=== PATIENT | female | born 1960 | race Caucasian/White ===

== ENCOUNTER → 2016-11-24 | Day surgery (SDC) | payer OTHER ==
[~2016-11-24] MED LIST: ATORVASTATIN CA10 MG PO; LOTENSIN HCT 201 TAB PO; PRAVACHOL; ULTRAM PO; VITAMIN D3400 UNI1 PO; VOLTAREN75 MG PO; ZESTORETIC 20-1 EAC1 PO; ZESTORETIC PO
--- NOTE | ~2016-11-24 | OR ---
Unit #: [id number] #: [id number] Patient: AIR SOSA [id number] [address] [address] [id number] MR#: [id number] NAME: ARI SOSA ROOM: Date of Procedure: 11/24/2016 Admission Date: 11/24/2016 Surgeon: Al Wiggins M.D. : 1960 Attending Physician: Al Wiggins M.D. Referring Physician: Al Wiggins M.D. Primary Care Physician: Marisela Matias M.D. OPERATIVE REPORT PROCEDURE PERFORMED Colonoscopy to ascending colon with snare polypectomy. INDICATIONS FOR PROCEDURE The patient with history of colon cancer, undergoing high-risk surveillance. MEDICATIONS Monitored anesthesia. POSTOPERATIVE FINDINGS 1. Two polyps, ascending colon, snared and sent for histopathology. 2. Cecum was identified from a distance; however, I could not get into the cecum itself. The patient has a very large ventral hernia, which makes it difficult to get through the transverse colon and back to the cecum. PLAN 1. Follow up on pathology report. 2. Repeat colonoscopy in 3 to 5 years. DESCRIPTION OF PROCEDURE The patient was explained of the procedure, risks, and benefits along with risks and benefits of anesthesia. She was brought to the endoscopy room. Propofol anesthesia was given. Rectal exam was done, which was normal. Colonoscope was lubricated, passed up the rectum, advanced under direct vision all the way to the cecum. Cecum was identified by ileocecal valve and appendiceal orifice. Two polyps were seen as described. Both were snared and sent for histopathology. I retroflexed in the rectum, small hemorrhoids seen. Scope was gently pulled out. She tolerated it well. Dictated by... Pilar Gleason/nam TD: 11/25/2016 01:18 JOB #: [id number] CC: Lara Washington M.D. Unit #: [id number] #: [id number] Patient: ARI SOSA OPERATIVE REPORT Page 1 of 1 X Al Wiggins MD PROCEDURE OPERATIVE NOTE
== END | disposition home or self-care (01) ==
LOC: COPS 10:48
DX: Z12.11 Encounter for screening for malignant neoplasm of colon (principal); D12.2 Benign neoplasm of ascending colon; K43.9 Ventral hernia without obstruction or gangrene; K64.9 Unspecified hemorrhoids; K21.9 Gastro-esophageal reflux disease without esophagitis; I10 Essential (primary) hypertension; E78.5 Hyperlipidemia, unspecified; E66.01 Morbid (severe) obesity due to excess calories; Z68.42 Body mass index [BMI] 45.0-49.9, adult; Z86.010 Personal history of colon polyps; Z79.899 Other long term (current) drug therapy; Z98.890 Other specified postprocedural states
CPT/HCPCS: 88305